=== PATIENT | female | born 1995 | race Caucasian/White ===

== ENCOUNTER 2019-03-26 21:12 | Emergency (ER) | payer BC ==
[2019-03-26] MEDS ORDERED: Ondansetron ODT TAB* 4 MG PO ONE (21:35)
[2019-03-26 22:03] LABS: ABS Lymphocytes 0.4 10^3/ul (1.0-4.8); ABS Monocytes 0.5 10^3/ul (0-0.8); ABS Neutrophils 12.4 10^3/ul (1.5-7.7); Eosinophil % 0.2 %; Hematocrit 40 % (35-47); Hemoglobin 13.4 g/dL (12.0-16.0); Lymphocyte % 2.7 %; Mean Corpuscular HGB Conc 34 g/dL (31-36); Mean Corpuscular Hemoglobin 28 pg (27-31); Mean Corpuscular Volume 83 fL (80-97); Mean Platelet Volume 7.5 fL (7.4-10.4); Nucleated Red Blood Cells % 0.1; Platelet Count 261 10^3/uL (150-450); Red Blood Count 4.82 10^6 /uL (3.70-4.87); Red Cell Distribution Width 14 % (10.5-15); White Blood Count 13.3 10^3/uL (3.5-10.8)
[2019-03-26 22:20] LABS: Anion Gap 14 mmol/L (2-11); BUN/Creatinine Ratio 20.3 (8-20); Blood Urea Nitrogen 16 mg/dL (6-24); CO2 Carbon Dioxide 18 mmol/L (22-32); Calcium 9.9 mg/dL (8.6-10.3); Chloride 106 mmol/L (101-111); EGFR African American 109.1 (>60); EGFR Non-African American 90.2 (>60); Glucose 141 mg/dL (70-100); Potassium 3.9 mmol/L (3.5-5.0); Sodium 138 mmol/L (135-145)
[2019-03-26 22:27] LABS: HCG Pregnancy < 0.60 mIU/mL
--- NOTE | 2019-03-26 22:32 | ED ---
GI/ HPI - HPI Summary HPI Summary: Pt is a 23 y/o female who presents to the ED c/o dizziness. At 18:45 tonight she began to have N/V; pt had about 8 episodes of emesis since then. Pt also c/ o fever, back pain, and diffuse abdominal pain, rated a 5/10 in severity. [employer] she stood up to go vomit and became very dizzy, lightheaded, and shaky. She had another episode of SOB and hand numbness, which has now resolved. Pt denies any diarrhea, dysuria, or urinary frequency. Pt is concerned that she is dehydrated , especially since she has not been drinking much water this week. Her family has had a stomach bug recently. Pt denies any chance of . - History of Current Complaint Chief Complaint: EDNauseaVomitDiarrh Time Seen by Provider: 03/26/19 22:28 Stated Complaint: HAND NUMBNESS, VOMITING, SYNCOPE PER FRIEND Hx Obtained From: Patient Onset/Duration: Started Hours Ago - 18:45, Still Present Timing: Constant Current Severity: Moderate Pain Intensity: 5 Location of Pain: Diffuse Associated Signs and Symptoms: Positive: Back Pain, Dizziness, Nausea, Vomiting , Fever, Abdominal Pain. Negative: Diarrhea, Dysuria Alleviating Factor(s): Nothing - Allergy/Home Medications Allergies/Adverse Reactions: Allergies Allergy/AdvReac Type Severity Reaction Status Date / Time paroxetine Allergy Unknown Verified 03/26/19 21:30 Reaction Details PMH/Surg Hx/FS Hx/Imm Hx Endocrine/Hematology History: Denies: Hx Diabetes Cardiovascular History: Denies: Hx Hypertension Infectious Disease History: No Infectious Disease History: Denies: Traveled Outside the [place] in Last 30 Days - Family History Known Family History: Positive: Non-Contributory - Social History Alcohol Use: None Hx Substance Use: No Substance Use Type: Reports: None Hx Tobacco Use: No Smoking Status (MU): Never Smoked Tobacco Review of Systems Positive: Fever, Other - shakiness Positive: Shortness Of Breath - resolved Positive: Abdominal Pain, Vomiting, Nausea. Negative: Diarrhea Negative: dysuria, frequency Positive: Myalgia - back Neurological: Other - Dizziness, lightheadedness Positive: Numbness - hands All Other Systems Reviewed And Are Negative: Yes Physical Exam - Summary Physical Exam Summary: Appearance: well appearing, no pain distress Skin: warm, dry, reflects adequate perfusion Head/face: normal Eyes: EOMI, BILL ENT: mucous membranes moist Neck: supple, non-tender Respiratory: CTA, breath sounds present Cardiovascular: RRR, pulses symmetrical Abdomen: non-tender, soft Bowel Sounds: present Musculoskeletal: normal, strength/ROM intact Neuro: normal, sensory motor intact, A&Ox3 Triage Information Reviewed: Yes Vital Signs On Initial Exam: Initial Vitals Temp Pulse Resp BP Pulse Ox 99.5 F 88 22 125/86 98 03/26/19 21:20 03/26/19 21:20 03/26/19 21:20 03/26/19 21:20 03/26/19 21:20 Vital Signs Reviewed: Yes Diagnostics - Vital Signs Vital Signs Temp Pulse Resp BP Pulse Ox 03/26/19 21:20 99.5 F 88 22 125/86 98 - Laboratory Lab Results: Lab Results 03/26/19 03/26/19 Range/Units 21:56 21:56 WBC 13.3 H (3.5-10.8) 10^3/uL RBC 4.82 (3.70-4.87) 10^6 /uL Hgb 13.4 (12.0-16.0) g/dL Hct 40 (35-47) % MCV 83 (80-97) fL MCH 28 (27-31) pg MCHC 34 (31-36) g/dL RDW 14 (10.5-15) % Plt Count 261 (150-450) 10^3/uL MPV 7.5 (7.4-10.4) fL Neut % (Auto) 93.1 % Lymph % (Auto) 2.7 % [place] % (Auto) 3.8 % Eos % (Auto) 0.2 % Baso % (Auto) 0.2 % Absolute Neuts (auto) 12.4 H (1.5-7.7) 10^3/ul Absolute Lymphs (auto) 0.4 L (1.0-4.8) 10^3/ul Absolute Monos (auto) 0.5 (0-0.8) 10^3/ul Absolute Eos (auto) 0.0 (0-0.6) 10^3/ul Absolute Basos (auto) 0.0 (0-0.2) 10^3/ul Absolute Nucleated RBC 0.0 10^3/ul Nucleated RBC % 0.1 Sodium 138 (135-145) mmol/L Potassium 3.9 (3.5-5.0) mmol/L Chloride 106 (101-111) mmol/L Carbon Dioxide 18 L (22-32) mmol/L Anion Gap 14 H (2-11) mmol/L BUN 16 (6-24) mg/dL Creatinine 0.79 (0.51-0.95) mg/dL Est GFR ( Amer) 109.1 (>60) Est GFR (Non-Af Amer) 90.2 (>60) BUN/Creatinine Ratio 20.3 H (8-20) Glucose 141 H (70-100) mg/dL Calcium 9.9 (8.6-10.3) mg/dL Beta HCG, Quant < 0.60 mIU/mL Result Diagrams: 03/26/19 21:56 03/26/19 21:56 Lab Statement: Any lab studies that have been ordered have been reviewed, and results considered in the medical decision making process. Re-Evaluation - Re-Evaluation First Eval Re-Evaluation Time: 23:41 Change: Improved Comment: Pt feels better. GIGU Course/Dx - Course Course Of Treatment: Patient with exposure to viral gastroenteritis and close contacts. Started with nausea and vomiting has not yet had diarrhea. Abdomen is soft and benign. Hydrated here with significant improvement. No further vomiting. Treat symptomatically. - Diagnoses Differential Diagnoses - Female: Appendicitis, Gall Bladder Disease, Gastroenteritis (Viral), Gastroenteritis (Bacterial), Ovarian Cyst Provider Diagnoses: Acute vomiting Discharge - Sign-Out/Discharge Documenting (check all that apply): Patient Departure - Discharge Patient Received Moderate/Deep Sedation with Procedure: No - Discharge Plan Condition: Improved Disposition: HOME Prescriptions: Hyoscyamine TAB* [Anaspaz 0.125 MG TAB*] 0.125 mg PO Q6H PRN #20 tab PRN Reason: abdominal cramping Ondansetron ODT TAB* [Zofran 4 MG Odt TAB*] 4 mg PO Q6H PRN #12 tab.odt PRN Reason: Nausea Patient Education Materials: Acute Nausea and Vomiting (ED) Referrals: [facility] [Provider Group] Additional Instructions: Drink plenty of fluids, bland diet as tolerated. Gatorade G2 may help. You may experience diarrhea. It is safe to take Pepto-Bismol within the first 24 hours and then he can take Imodium to control diarrhea after that. Call [facility] first thing in the morning to schedule follow-up. Return if worse, unable to keep down fluids, pain, fevers or other concerns. - Billing Disposition and Condition Condition: IMPROVED Disposition: Home - Attestation Statements Document Initiated by Ethel: Yes Documenting Scribe: Jackie Schrader Provider For Whom Ethel is Documenting (Include Credential): Cornell Delvalle MD Scribe Attestation: Jackie Craft, scribed for Cornell Delvalle MD on 03/27/19 at 0312. Scribe Documentation Reviewed: Yes Provider Attestation: The documentation as recorded by the Jackie arteaga accurately reflects the service I personally performed and the decisions made by Cornell persaud MD Status of Scribe Document: Viewed
[2019-03-26] MEDS ORDERED: Hyoscyamine TAB* 0.125 MG PO ONE (22:37)
[2019-03-26] MEDS ORDERED: Ondansetron INJ* 2 MG/ML VIAL IV ONE (22:37)
[2019-03-26] MEDS ORDERED: NS 0.9% 1000 ML** 1,000 ML IV ONE (22:37)
[2019-03-27 00:50] VITALS: BP 118/64
== END 2019-03-27 00:35 | disposition home or self-care (01) ==
LOC: ED 21:12
DX: R11.10 Vomiting, unspecified (principal); Z88.8 Allergy status to other drugs, medicaments and biological substances
CPT/HCPCS: 36415; 80048; 84702; 85025; 96361; 96374; 99283; A9270-GY; J2405